=== PATIENT | female | born 1975 | race Caucasian/White ===

== ENCOUNTER 2020-01-13 16:16 | Day surgery (SDC) | payer BC ==
[~2020-01-13 16:16] MED LIST: cefOXitin 2 GM Vial IV ONE
[2020-01-13] MEDS ORDERED: HYDROmorphone 2 MG/ML SDV IV ONE (16:17)
[2020-01-13] MEDS ORDERED: Midazolam 1 MG/ML 2 ML SDV IV ONE (16:17)
[2020-01-13] MEDS ORDERED: fentaNYL 100 MCG/2 ML SDV IV ONE (16:17)
[2020-01-13] MEDS ORDERED: Rocuronium 50 MG/5 ML Vial IV ONE (16:17)
[2020-01-13] MEDS ORDERED: Neostigmine Methylsulfate 10 MG/10 ML MDV IVPUSH ONE (16:17)
[2020-01-13] MEDS ORDERED: Dexamethasone 4 MG/ML 5 ML MDV IVPUSH ONE (16:17)
[2020-01-13] MEDS ORDERED: Lidocaine 2% 5 ML SDV IV ONE (16:17)
[2020-01-13] MEDS ORDERED: Metoclopramide 10 MG/2 ML SDV IVPUSH ONE (16:17)
[2020-01-13] MEDS ORDERED: Lactated Ringers 1,000 ML IV ONE (16:17)
[2020-01-13] MEDS ORDERED: Succinylcholine 200 MG/10 ML MDV IV ONE (16:17)
[2020-01-13] MEDS ORDERED: Glycopyrrolate 0.2 MG/ML 5 ML MDV IV ONE (16:17)
[2020-01-13] MEDS ORDERED: Propofol 200 MG/20 ML SDV IV ONE (16:17)
[2020-01-13] MEDS ORDERED: Ondansetron 4 MG/2 ML SDV IVPUSH ONE (16:17)
[2020-01-13] MEDS ORDERED: Ketorolac 30 MG/ML SDV IVPUSH ONE (16:17)
[2020-01-13] MEDS ORDERED: Sodium Chloride 0.9% 10 ML Syringe FLUSH PRN (16:30)
[2020-01-13] MEDS: Lactated Ringers 1,000 ML IV SCH ×2 (16:42→20:50)
[2020-01-13] MEDS ORDERED: cefOXitin 2 GM Vial IV ONE (17:00)
[2020-01-13] MEDS ORDERED: cefOXitin 2 GM in Sodium Chloride 0.9% 100 ML IV ONE (17:00)
[2020-01-13] MEDS ORDERED: Bupivacaine 0.5% 30 ML SDV INJECT ONE (17:42)
[2020-01-13] MEDS ORDERED: Lidocaine 1% with EPINEPHrine 1:100,000 20 ML MDV INJECT ONE (17:42)
[2020-01-13] MEDS ORDERED: Acetaminophen/HYDROcodone 325-5 MG Tab PO PRN (18:27)
--- NOTE | 2020-01-13 18:27 | PCM.OPNOTE ---
- General Post-Op/Procedure Note Date of Surgery/Procedure: 01/13/20 Operative Procedure(s): lap appendectomy Findings: suppurative appendix Pre Op Diagnosis: acute appendicitis with localized peritonitis Post-Op Diagnosis: Same Anesthesia Technique: General ET Tube, Local (8 ml 1 % lido with epi/0.5% buvipicaine) Primary Surgeon: George Grady Anesthesia Provider: Jc Carrilol EBL in mLs: 2 Complications: None Condition: Good Free Text/Narrative:: see dictation
[2020-01-13] MEDS ORDERED: Morphine 4 MG/ML VIAL IVPUSH PRN (18:35)
[2020-01-13] MEDS: Ketorolac 30 MG/ML SDV IVPUSH SCH (18:53)
[2020-01-13] MEDS: cefOXitin 2 GM in Sodium Chloride 0.9% 100 ML IV SCH (23:05)
[2020-01-14] MEDS: Ketorolac 30 MG/ML SDV IVPUSH SCH ×3 (00:20→11:28)
[2020-01-14] MEDS: Lactated Ringers 1,000 ML IV SCH (04:53)
[2020-01-14] MEDS: cefOXitin 2 GM in Sodium Chloride 0.9% 100 ML IV SCH (04:53)
--- NOTE | 2020-01-14 08:49 | PCM.SURGPN ---
- General Info Date of Service: 01/14/20 POD#: 1 Functional Status: Reports: Pain Controlled, Tolerating Diet, Ambulating - Review of Systems Pulmonary: Reports: No Symptoms Cardiovascular: Reports: No Symptoms Gastrointestinal: Reports: Abdominal Pain - Patient Data Vitals - Most Recent: Last Vital Signs Temp 98.7 F 01/14/20 06:10 Pulse 95 01/14/20 06:10 Resp 20 01/14/20 06:10 BP 124/86 01/14/20 06:10 Pulse Ox 91 L 01/14/20 06:10 Weight - Most Recent: 103.4 kg I&O - Last 24 Hours: Intake & Output 01/13/20 01/14/20 01/14/20 22:59 06:59 14:59 Intake Total 631 350 Output Total 300 250 Balance 331 100 Lab Results Last 24 Hrs: Laboratory Results - last 24 hr 01/13/20 01/13/20 01/14/20 Range/Units 16:21 16:22 06:10 WBC 15.7 H (4.5-12.0) X10-3/uL RBC 4.07 (3.23-5.20) x10(6)uL Hgb 12.8 (11.5-15.5) g/dL Hct 38.3 (30.0-51.3) % MCV 94.1 (80-96) fL MCH 31.6 (27.7-33.6) pg MCHC 33.5 (32.2-35.4) g/dL RDW 11.6 (11.5-15.5) % Plt Count 218 (125-369) X10(3)uL MPV 8.4 (7.4-10.4) fL Add Manual Diff Yes Neutrophils % (Manual) 75 (46-82) % Band Neutrophils % 12 H (0-6) % Lymphocytes % (Manual) 9 L (13-37) % Monocytes % (Manual) 4 (4-12) % Urine HCG, Qual Negative (NEGATIVE) SARS-CoV-2 RNA (JONN) Negative (NEGATIVE) Med Orders - Current: Current Medications Hydrocodone Bitart/Acetaminophen (Finley 325-5 Mg) 2 tab PO Q4H PRN PRN Reason: Pain (moderate 4-6) Last Admin: 01/14/20 06:16 Dose: 2 tab Documented by: Cefoxitin Sodium (Mefoxin) 2 gm IVPUSH Q6H [facility] Lactated Ringer's (Ringers, Lactated) 1,000 mls @ 125 mls/hr IV ASDIRECTED [facility] Last Admin: 01/14/20 04:53 Dose: 125 mls/hr Documented by: Ketorolac Tromethamine (Toradol) 30 mg IVPUSH Q6H [facility] Stop: 01/18/20 18:01 Last Admin: 01/14/20 06:12 Dose: 30 mg Documented by: Morphine Sulfate (Morphine) 3 mg IVPUSH Q1H PRN PRN Reason: Pain (severe 7-10) Last Admin: 01/13/20 22:00 Dose: 3 mg Documented by: Sodium Chloride (Saline Flush) 10 ml FLUSH ASDIRECTED PRN PRN Reason: Keep Vein Open Discontinued Medications Bupivacaine HCl (Marcaine 0.5%) 10 ml INJECT .STK-MED ONE Stop: 01/13/20 17:43 Last Admin: 01/13/20 17:42 Dose: 10 ml Documented by: Cefoxitin Sodium (Mefoxin) 2 gm IV ONETIME ONE Stop: 01/13/20 17:01 Last Admin: 01/13/20 16:51 Dose: 2 gm Documented by: Cefoxitin Sodium 2 gm/ Sodium (Chloride) 100 mls @ 200 mls/hr IV Q6H [facility] Last Admin: 01/14/20 04:53 Dose: 200 mls/hr Documented by: Lidocaine/Epinephrine (Xylocaine 1% With Epinephrine 1:100,000) 10 ml INJECT .STK-MED ONE Stop: 01/13/20 17:43 Last Admin: 01/13/20 17:42 Dose: 10 ml Documented by: - Exam Wound/Incisions: Dressing Dry and Intact General: Alert, Oriented, Cooperative Lungs: Clear to Auscultation, Normal Respiratory Effort Cardiovascular: Regular Rate, Regular Rhythm GI/Abdominal Exam: Normal Bowel Sounds, Soft, Tender (over incision sites ) Sepsis Event Note - Evaluation Sepsis Screening Result: No Definite Risk - Focused Exam Vital Signs: Vital Signs Temp Pulse Resp BP Pulse Ox Pulse Ox 01/14/20 06:10 98.7 F 95 20 124/86 91 L 01/14/20 06:00 91 L 01/14/20 04:00 95 20 137/84 94 L 94 L 01/14/20 02:00 94 L 01/14/20 00:00 90 16 101/66 94 L 01/13/20 23:00 98.3 F 92 16 105/74 95 01/13/20 22:00 98.1 F 86 16 112/77 93 L 01/13/20 21:00 94 20 111/76 94 L - Problem List & Annotations (1) S/P laparoscopic appendectomy SNOMED Code(s): 481942087, 17375328, 226130227, 278062096 Code(s): Z90.49 - ACQUIRED ABSENCE OF OTHER SPECIFIED PARTS OF DIGESTIVE TRACT Status: Acute Current Visit: Yes Annotation/Comment:: 01/13/2020 (2) Acute appendicitis SNOMED Code(s): 58817333 Code(s): K35.80 - UNSPECIFIED ACUTE APPENDICITIS Status: Acute Current Visit: Yes Qualifiers: Acute appendicitis type: with localized peritonitis Appendicitis gangrene presence: without gangrene Appendicitis perforation presence: without perforation Appendicitis abscess presence: without abscess Qualified Code(s): K35.30 - Acute appendicitis with localized peritonitis, without perforation or gangrene - Problem List Review Problem List Initiated/Reviewed/Updated: Yes - My Orders Last 24 Hours: Active Orders 24 hr Category Date Time Status Patient Status [ADT] Routine ADT 01/13/20 16:30 Active Ambulate [RC] Q4HPRN Care 01/13/20 18:28 Active Notify Provider Vital Signs [RC] PRN Care 01/13/20 18:28 Active Oxygen Therapy [RC] PRN Care 01/13/20 18:27 Active RT Incentive Spirometry [RC] Q2HWA Care 01/13/20 18:27 Active Ready for Discharge [RC] PER UNIT ROUTINE Care 01/14/20 08:45 Ordered Vital Signs [RC] 00,04,08,12,16,20 Care 01/13/20 18:27 Active Clear Liquid Diet [DIET] Diet 01/14/20 Breakfast Ordered Acetaminophen/HYDROcodone [Finley 325-5 MG] Med 01/13/20 18:27 Active 2 tab PO Q4H PRN Ketorolac [Toradol] Med 01/13/20 18:00 Active 30 mg IVPUSH Q6H Lactated Ringers [Ringers, Lactated] 1,000 ml Med 01/13/20 16:30 Active IV ASDIRECTED Morphine Med 01/13/20 18:35 Active 3 mg IVPUSH Q1H PRN Sodium Chloride 0.9% [Saline Flush] Med 01/13/20 16:30 Active 10 ml FLUSH ASDIRECTED PRN cefOXitin [Mefoxin] Med 01/14/20 11:00 Active 2 gm IVPUSH Q6H Peripheral IV Insertion Adult [OM.PC] Routine Oth 01/13/20 16:30 Ordered Sequential Compression Device [OM.PC] Routine Oth 01/13/20 16:30 Ordered Resuscitation Status Routine Resus Stat 01/13/20 15:44 Ordered Medication Orders Hydrocodone Bitart/Acetaminophen (Finley 325-5 Mg) 2 tab PO Q4H PRN PRN Reason: Pain (moderate 4-6) Last Admin: 01/14/20 06:16 Dose: 2 tab Documented by: JARRED Cefoxitin Sodium (Mefoxin) 2 gm IVPUSH Q6H [facility] Lactated Ringer's (Ringers, Lactated) 1,000 mls @ 125 mls/hr IV ASDIRECTED [facility] Last Admin: 01/14/20 04:53 Dose: 125 mls/hr Documented by: Infusion: 01/14/20 04:53 Dose: 125 mls/hr Documented by: Admin: 01/13/20 20:50 Dose: 125 mls/hr Documented by: Infusion: 01/13/20 20:50 Dose: 125 mls/hr Documented by: Admin: 01/13/20 16:42 Dose: 125 mls/hr Documented by: ABI Ketorolac Tromethamine (Toradol) 30 mg IVPUSH Q6H [facility] Stop: 01/18/20 18:01 Last Admin: 01/14/20 06:12 Dose: 30 mg Documented by: Admin: 01/14/20 00:20 Dose: 30 mg Documented by: Admin: 01/13/20 18:53 Dose: Not Given Documented by: ABI Morphine Sulfate (Morphine) 3 mg IVPUSH Q1H PRN PRN Reason: Pain (severe 7-10) Last Admin: 01/13/20 22:00 Dose: 3 mg Documented by: JARRED Sodium Chloride (Saline Flush) 10 ml FLUSH ASDIRECTED PRN PRN Reason: Keep Vein Open - Assessment Assessment (Free Text/Narrative):: ready for d/c - Plan Plan (Free Text/Narrative):: Augmentin for 10 days as wbc is up. see d/c paln for instructions.
[2020-01-14] MEDS ORDERED: cefOXitin 2 GM Vial IVPUSH SCH (11:00)
--- NOTE | 2020-01-14 11:38 | OR ---
DATE OF OPERATION: 01/13/2020 SURGEON: George Grady MD PROCEDURE PERFORMED: Laparoscopic appendectomy. PREOPERATIVE DIAGNOSIS: Acute appendicitis without rupture of gangrene. POSTOPERATIVE DIAGNOSIS: Acute appendicitis without rupture of gangrene. INDICATIONS FOR PROCEDURE: This is a 44-year-old white female who presented to the clinic with a complaint of some right lower quadrant abdominal pain. Subsequent workup demonstrated what had appeared to be acute appendicitis. She was offered and accepted a lap appendectomy. INTRAOPERATIVE FINDINGS: As follows: A total of 8 mL of a 1:1 mixture of 1% lidocaine with epinephrine and 0.5% bupivacaine was used, and a EthiMicromuscle Endopath 5 mm standard 6-row stapler was used to transect the base of the appendix. DESCRIPTION OF OPERATION: After an excellent general anesthetic was administered via endotracheal tube, the patient was prepped and draped in usual sterile manner. Our local was used to infiltrate the area just below the umbilicus. A vertical midline incision was then carried out. Blunt dissection was carried out and the midline fascia was exposed. Two stay sutures of 0 Vicryl were placed on either side of the fascia, which was then elevated. The fascia was incised and the abdominal cavity was entered. A 10.5 mm Lina trocar was inserted into the patient's abdomen and the patient's abdomen was insufflated to 15 mmHg using carbon dioxide. Under direct visualization, two 5 mm ports were placed, 1 in the approximate area of the anterior axillary line in the right lower quadrant and 1 in the midline below the umbilical port. The appendix was noted to be markedly inflamed and curled back on itself. We were able to grab it and, using careful blunt dissection, able to mobilize it. The mesoappendix appeared to be severely contracted. We were able to clip and divide the mesoappendix and dissect down to the base of the appendix itself. The Endo-BRITTANY was then passed and fired across the base of the appendix. Specimen was passed into a specimen bag and delivered out through the periumbilical port. The area was irrigated after assuring excellent hemostasis and ensuring that the intraabdominal cavity was clear. The pneumoperitoneum was released. The midline fascial defect was closed with a [id number] 0 Vicryl and subcu 4-0 Vicryl was used to close the skin. Needle, sponge, and instrument counts were reported as correct. The patient was taken to recovery room in good condition, having tolerated the procedure well. /[id number] /MODL
== END 2020-01-14 12:20 ==
LOC: FB.MS 16:16 → FB.SDS 16:16 → FB.MS 19:18 → FB.SDS 01-14 12:20
PROVIDERS: ATTEND Surgery
DX: K35.80 Unspecified acute appendicitis (principal); Z01.812 Encounter for preprocedural laboratory examination; Z20.828 Contact with and (suspected) exposure to other viral communicable diseases
CPT/HCPCS: 00840; 36415; 44970; 81025; 85025; 87635; 88304; 94150; A9270; J0330; J0694; J1100; J1170; J1885; J2001; J2250; J2270; J2405; J2704; J2710; J2765; J3010; J3490; J7050; J7120; U0002